=== PATIENT | male | born 2000 | race African-American/Black ===

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

== ENCOUNTER 2022-07-31 08:23 | Emergency (ER) | payer OTHER | END 2022-07-31 10:13 | disposition home or self-care (01) | LOC: ERS 08:23 | DX: H61.21 Impacted cerumen, right ear (principal) | CPT/HCPCS: 69210 ==

== ENCOUNTER 2023-05-16 14:31 | Emergency (ER) | payer OTHER, SELFPAY ==
[~2023-05-16 14:31] MED LIST: Iopamidol-370 76% 500 ML MDV (1 ML CHARGE) ONE
[2023-05-16 16:27] LABS: #Eosinphils 0.1 thou/uL (0.0-0.7); #Monocytes 0.5 thou/uL (0.11-0.59); #Neutrophils 3.8 thou/uL (1.40-6.50); %Basophils 0.2 % (0.0-1.0); %Eosinophils 1.2 % (0.0-10.0); %Lymphocytes 22.4 % (28.0-48.0); %Monocytes 8.5 % (0.0-4.0); %Neutrophils 67.5 % (31.0-61.0); Hematocrit 50.3 % (42.0-52.0); Mean Corpuscular HGB CONC 33.8 g/dL (32.0-36.0); Mean Corpuscular Hemoglobin 31.5 pg (25.0-35.0); Mean Corpuscular Volume 93.1 fl (78.0-98.0); Platelet Count 240 10x3/uL (130-400); RBC Distribution Width 13.2 % (11.5-14.5); White Blood Cell (WBC) Count 5.7 10x3/uL (4.8-10.8)
[2023-05-16 16:31] LABS: Bacteria/HPF None Seen HPF (None Seen); Bilirubin Negative (Negative); Blood, Urine Negative (Negative); CAUTI Indications for Culture Dysuria,urgency,freq; Clarity Clear (Clear); Glucose, Urine (Dipstick) Normal (Negative); Ketone, Urine Negative (Negative); Leukocyte Negative Leu/uL (Negative); Nitrite Negative (Negative); Protein, Urine (Dipstick) 10 mg/dL (Neg-Trace); RBC/HPF 0-3 HPF (0-3); Specific Gravity, Urine 1.026 (1.002-1.036); Squamous Epithelial None Seen HPF (0-3); Urobilinogen 3 mg/dL (Less than 2); WBC/HPF 0-3 HPF (0-3)
[2023-05-16 16:33] LABS: Urine Culture Reflex No No
[2023-05-16 16:48] LABS: ALT (SGPT) 12 U/L (8-55); AST (SGOT) 16 U/L (5-34); Albumin 4.8 g/dL (3.5-5.0); Alkaline Phosphatase 64 U/L (50-130); Anion Gap 15 mmol/L (10-20); BUN (Urea Nitrogen) 8 mg/dL (8.9-20.6); Bilirubin, Total 0.5 mg/dL (0.2-1.2); Calc. Creatinine Clearance 0 mL/min (70-130); Carbon Dioxide 25 mmol/L (22-29); Chloride 103 mmol/L (98-107); Estimated GFR 126; Globulin 3.8 g/dL (2.4-3.5); Glucose 88 mg/dL (70-105); Lipase 513 U/L (8-78); Potassium 4.7 mmol/L (3.5-5.1); Protein, Total 8.6 g/dL (6.0-8.3); Sodium 138 mmol/L (136-145)
[2023-05-16] MEDS ORDERED: Ondansetron ODT 4 MG TAB ONE (16:57)
[2023-05-16] MEDS ORDERED: Milk Of Magnesia 30 ML UDCUP ONE (16:57)
[2023-05-16] MEDS ORDERED: Ondansetron PF 4 MG/2 ML Vial ONE (18:12)
[2023-05-16] MEDS ORDERED: Morphine 4 MG/ML VIAL ONE ×2 (18:12→18:48)
[2023-05-16] MEDS ORDERED: Ketorolac Tromethamine 30 MG/ML VIAL ONE (18:12)
== END 2023-05-16 19:31 | disposition home or self-care (01) ==
LOC: ERS 14:31
DX: K85.90 Acute pancreatitis without necrosis or infection, unspecified (principal)
CPT/HCPCS: 36415; 74177; 80053; 81001; 83690; 85025; 96374; 96375; J1885; J2270; J2405; Q0162; Q9967

== ENCOUNTER 2025-02-05 07:45 | Emergency (ER) | payer SELFPAY | END 2025-02-05 08:29 | disposition home or self-care (01) | LOC: ERS 07:45 | DX: J02.9 Acute pharyngitis, unspecified (principal) | CPT/HCPCS: 99283 ==